=== PATIENT | male | born 1955 | race Caucasian/White ===

== ENCOUNTER 2018-02-25 15:57 | Emergency (ER) | payer MEDICAID, OTHER ==
[~2018-02-25] VITALS: Ht 167.6 cm; Wt 59.0 kg
[2018-02-25 16:35] VITALS: BP 87/57
== END 2018-02-25 19:05 | disposition home or self-care (01) ==
LOC: ED 19:00
DX: F10.239 Alcohol dependence with withdrawal, unspecified (principal)
CPT/HCPCS: 99283